=== PATIENT | male | born 1950 | race Caucasian/White ===

== ENCOUNTER → 2024-03-26 14:38 | Outpatient (REF) | payer OTHER, SELFPAY | LOC: HWRAD 14:38 | PROVIDERS: ATTENDING PHYSICIAN Physician Assistant | DX: R22.1 Localized swelling, mass and lump, neck (principal) | CPT/HCPCS: 76536 ==

== ENCOUNTER → 2024-04-06 09:40 | Outpatient (REF) | payer OTHER, SELFPAY | LOC: CLAB 09:40 | PROVIDERS: ATTENDING PHYSICIAN Otolaryngology | DX: R22.1 Localized swelling, mass and lump, neck (principal) | CPT/HCPCS: 88173 ==

== ENCOUNTER → 2024-05-05 11:51 | Outpatient (REF) | payer OTHER, SELFPAY | LOC: RAD 11:51 | PROVIDERS: ATTENDING PHYSICIAN Radiology Radiation Oncology; FAMILY PHYSICIAN Family Medicine | DX: C01 Malignant neoplasm of base of tongue (principal) | CPT/HCPCS: 70491; Q9967 ==

== ENCOUNTER 2024-08-25 14:02 | Outpatient (RCR) | payer OTHER, SELFPAY | END 2024-08-25 23:59 | disposition home or self-care (01) | LOC: RPT 14:02 | PROVIDERS: ATTENDING PHYSICIAN Radiology Radiation Oncology; FAMILY PHYSICIAN Family Medicine | DX: C01 Malignant neoplasm of base of tongue (principal); Z73.6 Limitation of activities due to disability; I89.0 Lymphedema, not elsewhere classified | CPT/HCPCS: 97110; 97112; 97140; 97163 ==

== ENCOUNTER 2024-09-21 09:53 | Outpatient (RCR) | payer OTHER, SELFPAY | END 2024-09-21 23:59 | disposition home or self-care (01) | LOC: RPT 09:53 | PROVIDERS: ATTENDING PHYSICIAN Radiology Radiation Oncology; FAMILY PHYSICIAN Family Medicine | DX: C01 Malignant neoplasm of base of tongue (principal); Z73.6 Limitation of activities due to disability; I89.0 Lymphedema, not elsewhere classified | CPT/HCPCS: 97112; 97140; 97535 ==

== ENCOUNTER → 2024-09-30 12:12 | Outpatient (REF) | payer OTHER, SELFPAY | LOC: PET 12:12 | PROVIDERS: ATTENDING PHYSICIAN Radiology Radiation Oncology | DX: C01 Malignant neoplasm of base of tongue (principal) | CPT/HCPCS: 78815; A9552 ==

== ENCOUNTER 2024-10-27 06:36 | Outpatient (RCR) | payer OTHER, SELFPAY | END 2024-10-27 23:59 | disposition home or self-care (01) | LOC: RPT 06:36 | PROVIDERS: ATTENDING PHYSICIAN Radiology Radiation Oncology; FAMILY PHYSICIAN Family Medicine | DX: C01 Malignant neoplasm of base of tongue (principal); I89.0 Lymphedema, not elsewhere classified; Z73.6 Limitation of activities due to disability | CPT/HCPCS: 97110; 97112; 97140; 97530 ==

== ENCOUNTER 2024-11-19 12:44 | Outpatient (RCR) | payer OTHER, SELFPAY | END 2024-11-19 23:59 | disposition home or self-care (01) | LOC: RPT 12:44 | PROVIDERS: ATTENDING PHYSICIAN Radiology Radiation Oncology; FAMILY PHYSICIAN Family Medicine | DX: C01 Malignant neoplasm of base of tongue (principal); I89.0 Lymphedema, not elsewhere classified; Z73.6 Limitation of activities due to disability | CPT/HCPCS: 97112; 97140; 97530 ==

== ENCOUNTER → 2025-04-11 08:29 | Outpatient (REF) | payer OTHER, SELFPAY | LOC: RAD 08:29 | PROVIDERS: ATTENDING PHYSICIAN Radiology Radiation Oncology; FAMILY PHYSICIAN Family Medicine | DX: C01 Malignant neoplasm of base of tongue (principal) | CPT/HCPCS: 70491; Q9967 ==